=== PATIENT | female | born 1980 | race Caucasian/White ===

== ENCOUNTER 2018-08-04 21:32 | Emergency (ER) | payer MEDICAID ==
[~2018-08-04] VITALS: Ht 167.6 cm; Wt 81.6 kg
[2018-08-04 22:26] VITALS: BP 123/70
[2018-08-04] MEDS ORDERED: IBUPROFEN 600 MG TABLET PO ONE ×2 (23:00→23:18)
== END 2018-08-04 23:55 | disposition home or self-care (01) ==
LOC: ER 21:32
DX: S60.221A Contusion of right hand, initial encounter (principal); W21.09XA Struck by other hit or thrown ball, initial encounter; Y93.69 Activity, other involving other sports and athletics played as a team or group; Y92.89 Other specified places as the place of occurrence of the external cause; Y99.8 Other external cause status
CPT/HCPCS: 73130; 99283; A4606; Z7610